=== PATIENT | male | born 1985 | race Caucasian/White ===

== ENCOUNTER 2021-01-28 19:04 | Emergency (ER) | payer MEDICAID, SELFPAY ==
[2021-01-28 19:20] VITALS: BP 116/70; PULSE 75; RESP 15; TEMP 36.7; O2SAT 97; BMI 29.1
[2021-01-28 21:07] VITALS: BP 114/66; PULSE 66; RESP 15; O2SAT 98
[2021-01-28 21:08] VITALS: O2SAT 97
--- NOTE | 2021-01-28 22:02 | ED.MALEGU ---
HPI - Male Genitourinary General Chief complaint: Urogenital-Male Stated complaint: Urinating Blood Time Seen by Provider: 01/28/21 21:59 Source: patient Mode of arrival: Ambulatory Limitations: no limitations History of Present Illness HPI Narrative: 35-year-old male nonsmoker with noncontributory medical history presents with a chief complaint of painless hematuria over the course of the day. He denies any injury or trauma. He denies any dysuria, frequency or urgency. He denies any flank, groin or testicular pain. He denies any discharge. Denies any history of the same. MD Complaint: other Onset (ago): hour(s) Duration: constant Exacerbating factors: none Associated symptoms: Reports blood in urine Related Data Home Medications Medication Instructions Recorded Confirmed No Known Home Medications 01/28/21 01/28/21 Allergies Allergy/AdvReac Type Severity Reaction Status Date / Time bee venom protein (honey bee) Allergy Anaphylaxis Verified 01/28/21 19:20 ketorolac [From Toradol] AdvReac Anxiety Verified 01/28/21 19:20 Review of Systems Constitutional Constitutional: Denies chills, Denies fatigue, Denies fever(s), Denies frequent falls, Denies lethargy and Denies weakness Eyes Eyes: Denies change in vision, Denies eye discharge, Denies irritation and Denies loss of vision ENT Ears, Nose, Mouth, and Throat: Denies change in voice, Denies dizziness, Denies neck pain, Denies sore throat and Denies throat swelling Cardiovascular Cardiovascular: Denies chest pain, Denies irregular heart rhythm, Denies lightheadedness, Denies palpitations, Denies dyspnea, Denies dyspnea on exertion and Denies orthopnea Respiratory Respiratory: Denies cough, Denies dyspnea, Denies dyspnea on exertion and Denies wheezing Gastrointestinal Gastrointestinal: Denies abdominal pain, Denies change in bowel habits, Denies diarrhea, Denies nausea and Denies vomiting Genitourinary Genitourinary: Reports hematuria Genitourinary: Reports hematuria Musculoskeletal Musculoskeletal: Denies neck pain and Denies numbness Integumentary/Breasts Skin/Breast: Denies pruritus, Denies erythema, Denies rash and Denies wounds Neurologic Neurologic: Denies behavioral changes, Denies confusion, Denies dizziness, Denies frequent falls, Denies loss of vision, Denies numbness and Denies weakness Psychiatric Psychiatric: Denies anxiety, Denies behavioral changes, Denies confusion, Denies depression, Denies homicidal ideation and Denies suicidal ideation Endocrine Endocrine: Denies fatigue, Denies flushing and Denies palpitations Hematologic/Lymphatic Hematologic/Lymphatic: Denies easy bruising Allergic/Immunologic Allergic/Immunologic: Denies urticaria, Denies throat swelling and Denies wheezing Patient History Social History Smoking Status: Never smoker Smoking Status: Never smoker Substance Use Type: marijuana Exam Narrative Exam Narrative: GEN: AOx3 and in mild distress EYES: Pupils are equal, round, and reactive to light and accommodation. Extraoccular muscles are intact bilaterally. There is no subconjunctival hemorrhage or exudate. CHEST: Lungs are clear to auscultation bilaterally and free of wheezes, rales, or rhonchi. Heart rate is regular rhythm, there are no murmurs, clicks, rubs, or gallops. There is no chest wall tenderness. ABD: Abdomen is soft and nontender. There is no guarding or rebound. Bowel sounds are normal in all 4 quadrants. There is no mass or organomegaly. BACK: Back is nontender and free of any obvious external abnormalities. Patient exam is absent of any decreased range of motion, muscle spasm, CVA tenderness, or vertebral point tenderness. There are no symptoms of cauda equina such as saddle anesthesia, and decreased reflexes, decreased sensation or strength. EXT: Full painless ROM of all extremities with no loss of sensation or strength. SKIN: Warm, pink, and dry. No erythema or rash Initial Vital Signs Initial Vital Signs: Vital Signs Temperature 98.0 F 01/28/21 19:20 Pulse Rate 75 01/28/21 19:20 Respiratory Rate 15 01/28/21 19:20 Blood Pressure 116/70 01/28/21 19:20 Pulse Oximetry 97 01/28/21 19:20 Course Orders Ordered: ED Orders 01/28/21 22:05 Basic Metabolic Panel Stat Complete Blood Count AUTO DIFF Stat Prothrombin Time INR Stat 01/28/21 22:06 CT kidney ureter bladder (KUB) Stat Vital Signs Vital signs: Vital Signs - 8 hr 01/28/21 19:20 01/28/21 21:07 01/28/21 21:08 Temperature 98.0 F Pulse Rate 75 66 Respiratory Rate 15 15 Blood Pressure 116/70 114/66 Pulse Oximetry 97 98 97 01/28/21 23:01 Temperature Pulse Rate Respiratory Rate Blood Pressure 118/74 Pulse Oximetry MDM - Male Genitourinary Lab Data Result diagrams: 01/28/21 22:05 01/28/21 22:05 Labs: Lab Results 01/28/21 01/28/21 01/28/21 Range/Units 22:05 22:05 22:05 WBC 9.5 (4.5-11.0) X10^3/uL RBC 4.88 (4.5-5.9) X10^6/uL Hgb 14.2 (13.5-17.5) g/dL Hct 42.5 (41-53) % MCV 87.2 (80-100) fL MCH 29.1 (26-34) PG MCHC 33.4 (30-36) % RDW 13.5 (11.6-14.8) % Plt Count 168 (150-400) X10^3/uL Neut % (Auto) 59.5 (50-75) % Lymph % (Auto) 29.1 (25-40) % Pender % (Auto) 6.2 (3-14) % Eos % (Auto) 4.4 H (2-4) % Baso % (Auto) 0.8 (0-2) % Neut # (Auto) 5700 (2104-2246) /uL Lymph # (Auto) 2800 (2199-2552) /uL Pender # (Auto) 600 (0-900) /uL Eos # (Auto) 400 (0-450) /uL Baso # (Auto) 100 (0-100) /uL PT 11.7 (10.1-12.7) SECONDS INR 1.1 (0.9-1.3) Sodium 137 (137-145) mmol/L Potassium 3.7 (3.4-5.1) mmol/L Chloride 101 (98-107) mmol/L Carbon Dioxide 27 (22-32) mmol/L BUN 19 (9-20) mg/dL Creatinine 0.72 (0.66-1.25) mg/dL Estimated GFR > 60.0 (>60) mL/min BUN/Creatinine Ratio 26.4 H (6-22) Glucose 94 (70-100) mg/dL Calcium 9.2 (8.4-10.2) mg/dL Urine Dip Bedside Urine Glucose Negative Bedside Urine Bilirubin - Negative Bedside Urine Ketone - Negative Urine Specific [place] 1.030 Bedside Urine Occult Blood +++ Bedside Urine pH 6.0 Bedside Urine Protein - Negative Bedside Urine Urobilinogen - Negative Bedside Urine Nitrite - Negative Bedside Urine Leukocytes - Negative Esterase Imaging Data CT scan - abdomen/pelvis: Radiologist's Impression: No acute abnormality MDM Narrative Medical decision making narrative: Multiple etiologies for patient's symptoms considered including: [Kidney stone versus infection versus mass versus other] Patient remains asymptomatic for duration of his visit Findings and discharge diagnosis discussed with patient/family followed by verbalization of understanding Return precautions discussed with patient/family whom verbalize understanding. Discharge Plan Departure Patient Disposition: Home Clinical Impression: Hematuria Qualifiers: Hematuria type: unspecified type Qualified Code(s): R31.9 - Hematuria, unspecified Instructions: DI for Hematuria Activity Restrictions/Additional Instructions: *You have been diagnosed with [painless hematuria. Blood work is reassuring, CT scan shows no obvious abnormal findings, urine shows no sign of infection.] *What to do: *Take medications as directed * as we discussed, the next step is to follow-up with urology. I have given you the contact information as well as electronically transmitted the record of maxwell's visit to Dr. Varma *Return to ER if you should have any new, worsening or concerning symptoms, such as [pain, fever greater than 1 own F, shaking chills or other bothersome symptoms] Prescriptions: No Action No Known Home Medications RF: 0 Referrals: Margarita Varma MD [Physician] -
--- NOTE | 2021-01-28 22:06 | DI.CT.S_ITS ---
PROCEDURE: CT KIDNEY URETER BLADDER (KUB) INDICATIONS: hematuria TECHNIQUE: Noncontrast 5 mm thick sections acquired from the diaphragms to the symphysis. 5 mm thick coronal and sagittal reformats were then performed. For radiation dose reduction, the following was used: automated exposure control, adjustment of mA and/or kV according to patient size. COMPARISON: None. FINDINGS: Image quality: Excellent. Lung bases: Lung bases are clear. Heart size is normal. Urinary system: There is a horseshoe kidney. No focal abnormality. No calcifications. No hydronephrosis. Both ureters appear non-dilated throughout their expected courses. No stones noted within the bladder. There is questionable mild diffuse wall thickening of the bladder. Other solid organs: Liver is normal in size. Gallbladder is unremarkable. Pancreas is normal in contours. Spleen is normal in size. No adrenal nodules. Peritoneum and bowel: Unenhanced bowel loops demonstrate normal wall thickness and caliber. No free fluid or air. Appendix is normal. Nodes and vessels: No retroperitoneal or mesenteric adenopathy by size criteria. Aorta and inferior vena cava are normal in caliber. Abdominal wall: No ventral hernias. Pelvis: No free pelvic fluid. Bilateral small fat containing inguinal hernias. No inguinal adenopathy. Bones: No suspicious bony lesions. No vertebral body compression fractures. IMPRESSION: Horseshoe kidney. No evidence of hydronephrosis or urinary tract calcifications. Questionable diffuse wall thickening of the bladder. Recommend correlation with urinalysis to exclude cystitis. Dictated by: Tyree Dietz D.O. on 01/29/2021 at 7:44 Approved by: Tyree Dietz D.O. on 01/29/2021 at 7:49
[2021-01-28 22:19] LABS: Add Manual Diff / Slide Review NO; Basophils Absolute Auto 100 /uL (0-100); Basophils Percent Auto 0.8 % (0-2); Eosinophils Absolute Auto 400 /uL (0-450); Eosinophils Percent Auto 4.4 % (2-4); Hematocrit 42.5 % (41-53); Hemoglobin 14.2 g/dL (13.5-17.5); Lymphocytes Absolute Auto 2800 /uL (1100-4500); Lymphocytes Percent Auto 29.1 % (25-40); Mean Corpuscular HGB Conc 33.4 % (30-36); Mean Corpuscular Hemoglobin 29.1 PG (26-34); Mean Corpuscular Volume 87.2 fL (80-100); Monocytes Absolute Auto 600 /uL (0-900); Monocytes Percent Auto 6.2 % (3-14); Neutrophils Absolute Auto 5700 /uL (1500-7000); Neutrophils Percent Auto 59.5 % (50-75); Platelet Count 168 X10^3/uL (150-400); Red Blood Cell Count 4.88 X10^6/uL (4.5-5.9); Red Cell Distribution Width 13.5 % (11.6-14.8); White Blood Cell Count 9.5 X10^3/uL (4.5-11.0)
[2021-01-28 22:26] LABS: INR 1.1 (0.9-1.3); Prothrombin Time 11.7 SECONDS (10.1-12.7)
[2021-01-28 22:30] LABS: BUN Creatinine Ratio 26.4 (6-22); Blood Urea Nitrogen 19 mg/dL (9-20); Calcium 9.2 mg/dL (8.4-10.2); Carbon Dioxide 27 mmol/L (22-32); Chloride 101 mmol/L (98-107); Estimated Glomerular Filt Rate > 60.0 mL/min (>60); Glucose 94 mg/dL (70-100); Potassium 3.7 mmol/L (3.4-5.1); Sodium 137 mmol/L (137-145)
[2021-01-28 22:36] LABS: HEMOLYSIS 52 (0-50)
[2021-01-28 23:01] VITALS: BP 118/74
== END 2021-01-28 23:05 | disposition home or self-care (01) ==
PROVIDERS: Emergency Provider Emergency Medicine
DX: R31.9 Hematuria, unspecified (principal)
CPT/HCPCS: 36415; 74176; 80048; 81003; 85025; 85610; 99284

== ENCOUNTER 2021-04-03 09:59 | Emergency (ER) | payer MEDICAID, SELFPAY ==
[2021-04-03 10:07] VITALS: BP 128/80; PULSE 61; RESP 14; TEMP 36.6; O2SAT 99; BMI 29.1
--- NOTE | 2021-04-03 10:26 | ED_ITS ---
HPI - Male Genitourinary General Chief complaint: Urogenital-Male Stated complaint: pain left testicle and lower back Time Seen by Provider: 04/03/21 10:02 Source: patient Mode of arrival: Ambulatory Limitations: no limitations History of Present Illness HPI Narrative: Patient is a 35-year-old male who presents with left testicular pain which started after intercourse with his fiancee yesterday morning. He denies any injury and nothing abnormal during sex. He says throughout the day gotten progressively more sensitive and tender to touch. He denies any redness. He does not have concern for STD. No penile discharge. He has not noted any swelling. He took ibuprofen without any relief. Also having some mild midline back pain which started after this as well. He denies any flank pain. No radiation of flank pain to testicle. His actual testicle is what hurts. Related Data Home Medications Medication Instructions Recorded Confirmed ibuprofen 200 mg capsule 400 mg PO Q8H PRN 04/03/21 04/03/21 Previous Rx's Medication Instructions Recorded doxycycline hyclate 100 mg capsule 100 mg PO BID #14 cap 04/03/21 Allergies Allergy/AdvReac Type Severity Reaction Status Date / Time bee venom protein (honey bee) Allergy Anaphylaxis Verified 04/03/21 10:12 ketorolac [From Toradol] AdvReac Anxiety Verified 04/03/21 10:12 Review of Systems Review of Systems Narrative: GENERAL: Denies chills, fatigue, malaise, fever, sweats, travel HEENT: Denies sinus pain, ear pain, sore throat, difficulty swallowing, neck pain RESPIRATORY: Denies dyspnea, cough, wheezing, hemoptysis, sputum. CARDIOVASCULAR: Denies chest pain, palpitations, orthopnea, edema GASTROINTESTINAL: Denies nausea, vomiting, abdominal pain, diarrhea, constipation, melena. : See HPI MUSCULOSKELETAL: Denies weakness, joint pain, or bony pain SKIN: No rash, no erythema, no pruritus NEUROLOGIC: Denies weakness, dizziness, headache, numbness, change in speech, confusion PSYCHIATRIC: No concerning psychosocial issues. 12 point review of systems is negative except for those stated above and HPI Patient History Social History Smoking Status: Never smoker Smoking Status: Never smoker alcohol intake frequency: 0-2 drinks per day Substance Use Type: marijuana Exam Initial Vital Signs Initial Vital Signs: Vital Signs Temperature 97.9 F 04/03/21 10:07 Pulse Rate 61 04/03/21 10:07 Respiratory Rate 14 04/03/21 10:07 Blood Pressure 128/80 04/03/21 10:07 Pulse Oximetry 99 04/03/21 10:07 GENERAL: Well-appearing, well-nourished and in no acute distress. CARDIOVASCULAR: peripheral pulses in tact, cap refill <2 sec RESPIRATORY: No respiratory distress, speaks in full sentences without difficulty ABDOMEN: Soft, nontender, no guarding or rebound : Nurse jonathan in room, left testicle is tender no significant swelling no erythema no penile discharge no hernia appreciated rate testicles within normal limits. Cremasteric reflex intact No flank pain EXTREMITIES: Normal range of motion, no clubbing or edema. Neurovascularly i ntact NEUROLOGICAL: Cranial nerves II through XII grossly intact. Normal gait and speech. SKIN: Warm, dry, no petechiae, no rashes or lesions. Course Orders Ordered: ED Orders 04/03/21 10:34 US scrotum Stat 04/03/21 13:19 Chlamydia Gonorrhea PCR -URINE Stat Discontinued Medications Acetaminophen (Acetaminophen 325 Mg Tablet) 650 mg PO NOW ONE Stop: 04/03/21 10:43 Last Admin: 04/03/21 10:52 Dose: 650 mg Documented by: SUSANNA Ceftriaxone Sodium (Ceftriaxone 1,000 Mg Vial) 250 mg IM NOW ONE Stop: 04/03/21 13:14 Last Admin: 04/03/21 13:49 Dose: 250 mg Documented by: PERLA Vital Signs Vital signs: Vital Signs - 8 hr 04/03/21 10:07 04/03/21 14:14 Temperature 97.9 F Pulse Rate 61 70 Respiratory Rate 14 14 Blood Pressure 128/80 122/78 Pulse Oximetry 99 99 MDM - Male Genitourinary Lab Data Labs: Lab Results 04/03/21 Range/Units 13:19 Ur Chlamydia DNA (PCR) Not detected N gonorrhoeae DNA (PCR) Not detected Urine Dip Bedside Urine Glucose Negative Bedside Urine Bilirubin - Negative Bedside Urine Ketone - Negative Urine Specific [place] 1.015 Bedside Urine Occult Blood - Negative Bedside Urine pH 6.5 Bedside Urine Protein - Negative Bedside Urine Urobilinogen - Negative Bedside Urine Nitrite - Negative Bedside Urine Leukocytes - Negative Esterase Imaging Data US scrotum: Radiologist's Impression: PROCEDURE: US SCROTUM INDICATIONS: LEFT TESTICULAR PAIN TECHNIQUE: Real-time scanning was performed of the scrotum and testicles, with image documentation. Color and pulse Doppler interrogation was performed of both testicles. COMPARISON: None. FINDINGS: Right: Testicle is normal in size at 2.2 x 3.0 x 4.8 cm, and minimally heterogeneous in echotexture. Epididymis is normal in overall size and morphology. No hydrocele or varicoceles. Overlying scrotal skin is normal in thickness. Left: Testicle is normal in size at 2.4 x 3.0 x 4.0 cm, and homogeneous in echotexture. Epididymis is normal in overall size and morphology. No hydrocele or varicoceles. Overlying scrotal skin is normal in thickness. Doppler: Color and pulse Doppler demonstrate normal with slightly elevated asymmetric arterial flow in the left testicle. IMPRESSION: Suspect mild epididymal inflammation on the left. Dictated by: Hudson Jeffrey M.D. on 04/03/2021 at 12:51 MDM Narrative Medical decision making narrative: Patient is found to have epididymitis on ultrasound. He is given a shot of Rocephin along with doxycycline. Urine and gonorrhea chlamydia are negative. Recommend outpatient follow-up Discharge Plan Departure Patient Disposition: Home Clinical Impression: Epididymitis Instructions: DI for Epididymitis Activity Restrictions/Additional Instructions: *You have been diagnosed with epididymitis *What to do: at this time antibiotic should help your pain and infection. He received 1 dose of Rocephin in the ER which should be sufficient and take the antibiotics until gone. recommend supportive underwear. *Continue to take medications as directed doxycycline 100 mg twice a day for 7 days--> SENT TO [facility] ibuprofen 800 mg every 8 hours if needed for [id number] pain *Follow up with your primary care provider in 2-3 days *Return to ER if you should have increasing pain swelling redness [or] any new, worsening or concerning symptoms Prescriptions: New doxycycline hyclate 100 mg capsule 100 mg PO BID Qty: 14 RF: 0 No Action ibuprofen 200 mg Capsule 400 mg PO Q8H PRN (Reason: Pain (Scale Score 4-6)) RF: 0
--- NOTE | 2021-04-03 10:34 | DI.US.S_ITS ---
PROCEDURE: US SCROTUM INDICATIONS: LEFT TESTICULAR PAIN TECHNIQUE: Real-time scanning was performed of the scrotum and testicles, with image documentation. Color and pulse Doppler interrogation was performed of both testicles. COMPARISON: None. FINDINGS: Right: Testicle is normal in size at 2.2 x 3.0 x 4.8 cm, and minimally heterogeneous in echotexture. Epididymis is normal in overall size and morphology. No hydrocele or varicoceles. Overlying scrotal skin is normal in thickness. Left: Testicle is normal in size at 2.4 x 3.0 x 4.0 cm, and homogeneous in echotexture. Epididymis is normal in overall size and morphology. No hydrocele or varicoceles. Overlying scrotal skin is normal in thickness. Doppler: Color and pulse Doppler demonstrate normal with slightly elevated asymmetric arterial flow in the left testicle. IMPRESSION: Suspect mild epididymal inflammation on the left. Dictated by: [place] Jeffrey M.D. on 04/03/2021 at 12:51 Approved by: [place] Jeffrey M.D. on 04/03/2021 at 12:54
[2021-04-03] MEDS: ACETAMINOPHEN 325 MG TABLET 650 MG PO (10:52)
[2021-04-03] MEDS: cefTRIAXone 1,000 MG VIAL 250 MG IM (13:49)
[2021-04-03 14:14] VITALS: BP 122/78; PULSE 70; RESP 14; O2SAT 99
[2021-04-03 14:56] LABS: Urine N gonorrhoeae NOT DETECTED
[2021-04-03 14:59] LABS: Urine Chlamydia NOT DETECTED
== END 2021-04-03 14:15 | disposition home or self-care (01) ==
PROVIDERS: Emergency Provider Emergency Medicine
DX: N45.1 Epididymitis (principal)
CPT/HCPCS: 76870; 81003; 87491; 87591; 96372; 99283; 99284; J0696